=== PATIENT | male | born 1955 | race Caucasian/White ===

== ENCOUNTER → 2020-10-23 | Outpatient (CLI) | payer OTHER ==
[~2020-10-23] MED LIST: ALL DAY ALLERGY10 M2 PO; ALPRAZOLAM0.5 MG PO; ANTIVERT 25MG T25 MG PO; BRILINTA 90 MG90 MG PO; CARVEDILOL3.125 MG PO; CLONAZEPAM1 MG PO; COREG 3.125M3.125 MG PO; ECOTRIN81 MG PO; ELAVIL 50 MG TA50 MG PO; FUROSEMIDE40 MG PO; HYDROCODON-ACE1 EAC6 PO; LASIX40 MG PO; LEVOCETIRIZINE D5 MG PO; LIPITOR TAB 2020 MG PO; LISINOPRIL2.5 MG PO; LISINOPRIL5 MG PO; LO-DOSE ASPIRIN81 MG PO; LUVOX TAB 100100 MG PO; MECLIZINE HCL25 MG PO; MEN 50 PLUS MU1 EACH PO; METOCLOPRAMIDE10 MG PO; MINIPRESS CAP 11 MG PO; MIRAPEX0.5 MG PO; MIRTAZAPINE7.5 MG PO; MONTELUKAST SOD10 MG PO; MORPHINE SULFAT30 M4 PO; NITROGLYCERIN0.4 MG SL; ONDANSETRON HCL8 MG PO; OXYCODON-ACETA1 EAC1 PO; PHENERGAN 25 MG25 M1 PO; POTASSIUM CHLO20 ME1 PO; PRAMIPEXOLE D0.25 MG PO; PREVACID30 MG PO; PROTONIX 40 MG40 M1 PO; QUETIAPINE FUM100 MG PO; REFRESH OPTIVE1 EAC1 OP; REMERON30 MG PO; SINGULAIR10 MG PO; TOPROL XL 25 MG25 MG PO; TRAZODONE HCL100 MG PO; VITAMIN D31000 UNIT PO; ZANTAC150 MG PO; ZANTAC300 MG PO; ZESTRIL2.5 MG PO; ZOCOR 10 MG TAB10 MG PO; ZOCOR10 MG PO; ZOFRAN8 MG PO
== END ==
LOC: EXRD 09:15
DX: M25.522 Pain in left elbow (principal); M25.512 Pain in left shoulder; Z87.01 Personal history of pneumonia (recurrent); M19.012 Primary osteoarthritis, left shoulder; M19.022 Primary osteoarthritis, left elbow
CPT/HCPCS: 71046; 73030; 73080

== ENCOUNTER → 2021-08-19 | Outpatient (CLI) | payer OTHER | LOC: HEART 5 13:00 | DX: R07.9 Chest pain, unspecified (principal); I25.10 Atherosclerotic heart disease of native coronary artery without angina pectoris; R06.00 Dyspnea, unspecified; I08.3 Combined rheumatic disorders of mitral, aortic and tricuspid valves; I27.20 Pulmonary hypertension, unspecified | CPT/HCPCS: 93306 ==